=== PATIENT | male | born 1950 | race Caucasian/White ===

== ENCOUNTER 2018-07-04 07:36 | Day surgery (SDC) | payer OTHER ==
[~2018-07-04 07:36] MED LIST: Midazolam 1 MG/ML 2 ML SDV ONE; Propofol 200 MG/20 ML SDV ONE; fentaNYL 100 MCG/2 ML SDV ONE
[2018-07-04] MEDS ORDERED: Sodium Chloride 0.9% 1,000 ML IV SCH (08:30)
--- NOTE | 2018-07-04 10:45 | OR ---
DATE OF PROCEDURE: 07/04/2018 PROCEDURE: Colonoscopy. FINDINGS: Ascending colon polyp, approximately 5 mm, completely removed using cold biopsy forceps. COMPLICATIONS: None. SALES OPERATIONS ASSOCIATE: None. ANESTHESIA: MAC. PREOPERATIVE DIAGNOSIS: Screening colonoscopy. POSTOPERATIVE DIAGNOSIS: Screening colonoscopy. RISKS: Risks, benefits, alternatives, and limitations including, but not limited to infection, bleeding, and perforation were explained to the patient, who wished to proceed. PROCEDURE IN DETAIL: The patient was placed in left lateral decubitus position. Digital rectal exam was performed without abnormality. The scope was introduced atraumatically into the ileocecal valve. The scope was brought back to the ascending, transverse, descending colon, and retroflexed. The aforementioned polyp was identified and completely removed. The patient's diverticulosis would be described as extensive, throughout the entire colon, but mostly concentrated in the sigmoid colon. No abnormalities and retroflexed. The patient tolerated the procedure well. Rory Reynolds MD /[id number]
== END 2018-07-04 10:30 | disposition home or self-care (01) ==
LOC: JP.SDS 07:36
PROVIDERS: ATTEND Surgery
DX: Z12.11 Encounter for screening for malignant neoplasm of colon (principal); D12.2 Benign neoplasm of ascending colon; K57.30 Diverticulosis of large intestine without perforation or abscess without bleeding; I10 Essential (primary) hypertension; J44.9 Chronic obstructive pulmonary disease, unspecified; F17.200 Nicotine dependence, unspecified, uncomplicated; E78.5 Hyperlipidemia, unspecified; Z88.8 Allergy status to other drugs, medicaments and biological substances
CPT/HCPCS: 45380; J2250; J2704; J3010; 88305

== ENCOUNTER 2022-02-04 11:08 | Emergency (ER) | payer OTHER | END 2022-02-04 11:56 | disposition home or self-care (01) | LOC: JP.ED 11:08 | DX: K04.7 Periapical abscess without sinus (principal); J44.9 Chronic obstructive pulmonary disease, unspecified | CPT/HCPCS: 99282 ==

== ENCOUNTER 2023-12-23 15:27 | Emergency (ER) | payer OTHER ==
[2023-12-23] MEDS: Tetracaine HCl/PF 0.5% 4 ML Bottle EYELF ONE (15:58)
== END 2023-12-23 16:15 | disposition home or self-care (01) ==
LOC: JP.ED 15:27
DX: S05.02XA Injury of conjunctiva and corneal abrasion without foreign body, left eye, initial encounter (principal); J44.9 Chronic obstructive pulmonary disease, unspecified; Z79.899 Other long term (current) drug therapy; Z86.16 Personal history of COVID-19; Z87.891 Personal history of nicotine dependence; X58.XXXA Exposure to other specified factors, initial encounter
CPT/HCPCS: 99283

== ENCOUNTER 2024-05-30 20:47 | Emergency (ER) | payer OTHER, MEDICARE ==
[2024-05-30 21:01] LABS: BASOPHILS ABSOLUTE AUTO 0.11 K/uL (0.00-0.10); EOSINOPHILS PERCENT AUTO 9.1 % (0.0-5.4); HEMATOCRIT 41.7 % (38.4-49.7); IMMATURE GRAN PERCENT AUTO 0.2 % (0.0-0.7); LYMPHOCYTES ABSOLUTE AUTO 2.63 K/uL (0.8-3.3); LYMPHOCYTES PERCENT AUTO 23.8 % (11.4-47.7); MEAN CORPUSCULAR HEMOGLOBIN 31.9 pg (31.6-35.5); MEAN CORPUSCULAR HGB CONC 33.6 g/dL (31.6-35.5); MONOCYTES ABSOLUTE AUTO 1.23 K/uL (0.20-0.90); MONOCYTES PERCENT AUTO 11.2 % (3.3-12.6); NEUTROPHILS ABSOLUTE AUTO 6.04 K/uL (1.0-7.6); NEUTROPHILS PERCENT AUTO 54.7 % (40.0-78.1); PLATELET COUNT,PLT 284 K/uL (130-375); RED BLOOD CELL COUNT 4.39 M/uL (4.14-5.76)
[2024-05-30 21:06] LABS: IMMATURE GRAN ABSOLUTE AUTO 0.02 K/uL (0.00-0.23)
[2024-05-30] MEDS: Albuterol/Ipratropium 3.0-0.5 MG/3 ML Neb Soln NEB ONE (21:06)
[2024-05-30 21:27] LABS: A/G RATIO 1.1 (1.2-2.2); ALANINE AMINOTRANSFERASE,ALT 23 U/L (12-78); ALBUMIN 4.3 g/dL (3.4-5.0); ALKALINE PHOSPHATASE 117 U/L (46-116); ANION GAP 10.5 mmol/L (5.0-14.0); ASPARTATE AMNIOTRANSFERASE,AST 23 U/L (15-37); BILIRUBIN TOTAL 0.5 mg/dL (0.2-1.0); BLOOD UREA NITROGEN,BUN 17 mg/dL (7-18); CALCIUM 9.5 mg/dL (8.5-10.1); CARBON DIOXIDE,CO2 27 mmol/L (21-32); CHLORIDE,CL 103 mmol/L (100-108); CREATININE 1.3 mg/dL (0.8-1.3); EST CRCL DRUG DOSING (CG) 50.61 mL/min; ESTIMATED GFR 58 mL/min (>60); GLUCOSE RANDOM 99 mg/dL (74-106); POTASSIUM,K 4.1 mmol/L (3.6-5.2); PROTEIN TOTAL,TP 8.1 g/dL (6.4-8.2); SODIUM,NA 140 mmol/L (140-148)
[2024-05-30 21:28] LABS: LACTIC ACID 1.3 mmol/L (0.4-2.0); TROPONIN I HIGH SENSITIVITY 298.7 pg/mL (<=60.3)
[2024-05-30] MEDS: Aspirin 81 MG Tab.Chew PO ONE (22:01)
[2024-05-30] MEDS: Heparin Sodium 5,000 Units/ML Vial IVPUSH ONE (22:42)
[2024-05-30] MEDS: Heparin Sodium/D5W 25,000 UNITS/500 ML BAG IV SCH (22:52)
[2024-05-31 00:24] LABS: INR 1.2; PROTHROMBIN TIME 12.2 sec (9.2-10.6)
[2024-05-31 00:53] LABS: PTT,PARTIAL THROMBOPLSTIN TIME 156.2 sec (21.8-27.3)
== END 2024-05-31 01:28 | disposition other institution (70) ==
LOC: JP.ED 20:47
DX: I21.4 Non-ST elevation (NSTEMI) myocardial infarction (principal); J44.9 Chronic obstructive pulmonary disease, unspecified; Z86.16 Personal history of COVID-19; Z90.89 Acquired absence of other organs; Z87.891 Personal history of nicotine dependence; Z79.51 Long term (current) use of inhaled steroids; Z79.899 Other long term (current) drug therapy
CPT/HCPCS: 36415; 71045; 80053; 83605; 84145; 84484; 85025; 85379; 85610; 85730; 93005; 93010; 94640; 96365; 96366; 99285; A9270; J1644; J7620

== ENCOUNTER 2024-12-27 18:19 | Emergency (ER) | payer MEDICARE, OTHER ==
[2024-12-27] MEDS: Tetracaine HCl/PF 0.5% 4 ML Bottle EYEBOTH ONE (18:51)
== END 2024-12-27 19:17 | disposition home or self-care (01) ==
LOC: JP.ED 18:19
DX: S05.02XA Injury of conjunctiva and corneal abrasion without foreign body, left eye, initial encounter (principal); Z79.899 Other long term (current) drug therapy; Z79.51 Long term (current) use of inhaled steroids; Z86.16 Personal history of COVID-19; X58.XXXA Exposure to other specified factors, initial encounter; Y93.89 Activity, other specified
CPT/HCPCS: 99283

== ENCOUNTER 2025-02-21 21:32 | Emergency (ER) | payer OTHER, MEDICARE | END 2025-02-21 22:35 | disposition home or self-care (01) | LOC: JP.ED 21:32 | DX: S05.02XA Injury of conjunctiva and corneal abrasion without foreign body, left eye, initial encounter (principal); J44.9 Chronic obstructive pulmonary disease, unspecified; M19.90 Unspecified osteoarthritis, unspecified site; Z79.899 Other long term (current) drug therapy; Z86.16 Personal history of COVID-19; X58.XXXA Exposure to other specified factors, initial encounter | CPT/HCPCS: 99283; A9270 ==

== ENCOUNTER 2025-03-14 17:25 | Emergency (ER) | payer MEDICARE, OTHER | END 2025-03-14 18:51 | disposition left against medical advice (07) | LOC: JP.ED 17:25 | DX: Z53.21 Procedure and treatment not carried out due to patient leaving prior to being seen by health care provider (principal) ==

== ENCOUNTER 2025-03-15 12:07 | Emergency (ER) | payer OTHER | END 2025-03-15 12:44 | disposition home or self-care (01) | LOC: JP.ED 12:07 | DX: K08.89 Other specified disorders of teeth and supporting structures (principal); M19.90 Unspecified osteoarthritis, unspecified site; J44.9 Chronic obstructive pulmonary disease, unspecified; Z79.899 Other long term (current) drug therapy; Z86.16 Personal history of COVID-19 | CPT/HCPCS: 99282 ==

== ENCOUNTER 2025-05-02 16:56 | Emergency (ER) | payer OTHER | END 2025-05-02 18:36 | disposition home or self-care (01) | LOC: JP.ED 16:56 | DX: K05.10 Chronic gingivitis, plaque induced (principal); K02.9 Dental caries, unspecified; J44.9 Chronic obstructive pulmonary disease, unspecified; Z86.16 Personal history of COVID-19; Z87.891 Personal history of nicotine dependence; Z79.899 Other long term (current) drug therapy | CPT/HCPCS: 99283 ==